=== PATIENT | female | born 1945 | race Caucasian/White ===

== ENCOUNTER 2017-11-29 16:58 | Observation (INO) | payer MEDICARE, BC ==
[2017-11-29] MEDS ORDERED: KETOROLAC TROMETHAMINE 30 MG/ML SOL IM ONE (17:08)
[2017-11-29] MEDS ORDERED: ONDANSETRON HCL 4 MG TAB PO ONE (17:08)
[2017-11-29] MEDS ORDERED: LORAZEPAM 2 MG/ML SOL IM ONE (17:08)
[2017-11-29] MEDS ORDERED: KETOROLAC TROMETHAMINE 30 MG/ML SOL IV ONE (17:21)
[2017-11-29] MEDS ORDERED: LORAZEPAM 2 MG/ML SOL IV ONE (17:21)
[2017-11-29] MEDS ORDERED: ONDANSETRON HCL 4 MG/2 ML SOL IV ONE (17:22)
[2017-11-29 17:23] LABS: BASOPHILS % (AUTO) 1 % (0-3); EOSINOPHILS % (AUTO) 1 % (0-9); HEMATOCRIT 33 % (35-47); HEMOGLOBIN 11.3 gm/dl (12.0-15.5); LYMPHOCYTES % (AUTO) 7.42 % (10-50); MEAN CORPUSCULAR HEMOGLOBIN 31.9 pg (27.0-32.0); MEAN CORPUSCULAR HGB CONC 34.1 gm/dl (32.0-36.0); MEAN CORPUSCULAR VOLUME 94 fL (81-99); MONOCYTES % (AUTO) 2.5 % (0-12); NEUTROPHILS % (AUTO) 88.5 % (37-80)
[2017-11-29] MEDS ORDERED: SODIUM CHLORIDE 0.9% 1000 ML SOL IV SCH (17:30)
[2017-11-29 17:32] LABS: CALCIUM 8.7 mg/dl (8.5-10.1); CARBON DIOXIDE 27.2 mEq/L (21-32); CREATININE 2.19 mg/dl (0.60-1.00); POTASSIUM 3.8 mMol/L (3.5-5.1)
[2017-11-29] MEDS ORDERED: KETOROLAC TROMETHAMINE 30 MG/ML SOL ONE (17:33)
[2017-11-29] MEDS ORDERED: ONDANSETRON HCL 4 MG/2 ML SOL ONE (17:33)
[2017-11-29] MEDS ORDERED: LORAZEPAM 2 MG/ML SOL ONE (17:34)
[2017-11-29] MEDS: SODIUM CHLORIDE 0.9% 1000ML 1,000 ML IV SCH ×2 (18:54→19:16)
[2017-11-29] MEDS ORDERED: SODIUM CHLORIDE 0.9% 1000ML 1,000 ML IV SCH (20:15)
[2017-11-29] MEDS ORDERED: APAP/HYDROCODONE 325/5 TAB PO PRN (22:57)
[2017-11-29] MEDS ORDERED: SODIUM CHLORIDE 0.9% 1000ML 1,000 ML IV ONE (22:57)
[2017-11-29] MEDS ORDERED: ONDANSETRON HCL 4 MG/2 ML SOL IV PRN (22:57)
[2017-11-29 23:56] VITALS: RESP 20
[2017-11-30] MEDS: SODIUM CHLORIDE 0.9% FLUSH 10 ML SOL IV SCH ×2 (00:02→08:32)
[2017-11-30 07:38] LABS: CALCIUM 7.7 mg/dl (8.5-10.1); CARBON DIOXIDE 26.6 mEq/L (21-32); CREATININE 1.52 mg/dl (0.60-1.00); POTASSIUM 4.5 mMol/L (3.5-5.1)
[2017-11-30 07:46] LABS: BASOPHILS % (AUTO) 1 % (0-3); EOSINOPHILS % (AUTO) 3 % (0-9); HEMATOCRIT 30 % (35-47); HEMOGLOBIN 10.3 gm/dl (12.0-15.5); LYMPHOCYTES % (AUTO) 11.9 % (10-50); MEAN CORPUSCULAR HEMOGLOBIN 32.7 pg (27.0-32.0); MEAN CORPUSCULAR VOLUME 93 fL (81-99); MONOCYTES % (AUTO) 7.5 % (0-12); NEUTROPHILS % (AUTO) 76.7 % (37-80)
[2017-11-30 07:55] VITALS: BP 144/80; PULSE 77; TEMP 98; O2SAT 99
[2017-11-30] MEDS ORDERED: PANTOPRAZOLE SODIUM 40 MG/10 ML PDS IV SCH (09:00)
[2017-11-30 11:46] LABS: APPEARANCE,URINE Clear; BILIRUBIN,URINE NEGATIVE (NEGATIVE); COLOR,URINE Yellow; GLUCOSE, URINE (UA) NEGATIVE (NEGATIVE); KETONES,URINE NEGATIVE (NEGATIVE); LEUKOCYTE ESTERASE ,URINE NEGATIVE (NEGATIVE); NITRATE,URINE NEGATIVE (NEGATIVE); OCCULT BLOOD,URINE NEGATIVE (NEG-TRACE); PH,URINE 5.5; UROBILINOGEN,URINE 0.2 (0.2-1.0 EU)
[2017-11-30] MEDS: SODIUM CHLORIDE 0.9% 1000ML 1,000 ML IV SCH ×2 (11:51→11:52)
[2017-11-30 11:54] LABS: BACTERIA NEGATIVE (< 1+); CRYSTALS NEGATIVE (0-3 AVE/HPF); EPITHELIAL CELLS 0-3 (SQUAMOUS); RBC,URINE NEG (0-3AV/HPF); WBC,URINE 0-1 (0-5AV/HPF)
== END 2017-11-30 12:55 | disposition home or self-care (01) | DRG 948 ==
LOC: ED 16:58 → ACUTE CARE 22:52
PROVIDERS: ADMIT Emergency Medicine; ATTEND Emergency Medicine
DX: R53.1 Weakness (principal); N17.9 Acute kidney failure, unspecified; E86.0 Dehydration; R19.7 Diarrhea, unspecified; R51 Headache; R55 Syncope and collapse
CPT/HCPCS: 36415; 70450; 80048; 81001; 85025; 93005; 99285; J1885; J2060; J2405; A9270-GY